=== PATIENT | male | born 1960 | race Caucasian/White ===

== ENCOUNTER 2016-11-18 17:41 | Inpatient (IN) | payer OTHER ==
[~2016-11-18] VITALS: Ht 175.3 cm; Wt 137.6 kg
[~2016-11-18 17:41] MED LIST: AMARYL2 MG PO; GLUCOPHAGE1000 MG PO; PRINIVIL20 MG PO
[2016-11-18 18:53] LABS: HEMATOCRIT 45.3 % (38.0-50.0); MCH 29.6 PG (29.0-34.0); MCHC 34.2 G/DL (30.0-36.0); MCV 86.6 FL (86-99); MEAN PLAT.VOLUME 11.3 uM^3 (9.0-12.4); PLATELET COUNT 216 K/uL (156-360); RBC DIS.WIDTH-CV 11.9 % (11.8-14.6); RBC DIS.WIDTH-SD 37.5 % (39-53); RED BLOOD COUNT 5.23 M/uL (4.00-5.50); WHITE BLOOD COUNT 11.9 K/uL (4.1-10.2)
[2016-11-18 19:17] LABS: CHLORIDE 103 mEq/L (99-109); POTASSIUM 4.9 mEq/L (3.7-5.4); SODIUM 134 mEq/L (136-147)
[2016-11-18 19:19] LABS: GLUCOSE 290 mg/dL (70-99)
[2016-11-18 19:20] LABS: ANION GAP 10 MEQ/L (2-14)
[2016-11-18 19:23] LABS: GFR ESTIMATE (CALCULATED) 55 mL/min/
[2016-11-18 19:24] LABS: UREA NITROGEN (BUN) 24 mg/dL (9-23)
[2016-11-18 19:27] LABS: TROP-I INTERPRETATION NEGATIVE; TROPONIN-I < 0.01 ng/mL (0.0-0.30)
[2016-11-18 21:37] LABS: TROP-I INTERPRETATION NEGATIVE; TROPONIN-I < 0.01 ng/mL (0.0-0.30)
[2016-11-18] MEDS ORDERED: TERBINAFINE HC250 MG PO (22:31)
[2016-11-18] MEDS ORDERED: JANUMET XR 50-1 EACH PO (22:31)
[2016-11-18] MEDS ORDERED: ERGOCALCIF50000 UNIT PO (22:32)
[2016-11-19 02:54] VITALS: BP 122/72
[2016-11-19 03:49] VITALS: BP 120/79
[2016-11-19 06:21] LABS: POINT-OF-CARE METER ID UU13113831
[2016-11-19 06:27] LABS: BASOPHIL COUNT 0.1 K/uL (0-0.1); EOSINOPHIL (%) 0.6 % (0-5); EOSINOPHIL COUNT 0.1 K/uL (0-0.3); HEMATOCRIT 42.2 % (38.0-50.0); IMMATURE GRANULOCYTE (%) 0.6 % (0.0-0.7); IMMATURE GRANULOCYTE COUNT 0.1 K/uL; INSTRUMENT ABS NEUTROPHIL CT 8.5 K/uL; LYMPHOCYTE COUNT 1.4 K/uL (1.0-2.8); MCH 29.3 PG (29.0-34.0); MCHC 33.6 G/DL (30.0-36.0); MEAN PLAT.VOLUME 10.8 uM^3 (9.0-12.4); MONOCYTE (%) 6.8 % (3-12); MONOCYTE COUNT 0.7 K/uL (0-0.8); NEUTROPHIL (%) 78.7 % (45-76); NEUTROPHIL COUNT 8.5 K/uL (1.8-6.4); PLATELET COUNT 177 K/uL (156-360); RBC DIS.WIDTH-CV 12.3 % (11.8-14.6); RBC DIS.WIDTH-SD 38.7 % (39-53); RED BLOOD COUNT 4.85 M/uL (4.00-5.50); WHITE BLOOD COUNT 10.8 K/uL (4.1-10.2)
[2016-11-19 06:50] LABS: ALKALINE PHOSPHATASE 53 IU/L (3-129); ANION GAP 6 MEQ/L (2-14); CHLORIDE 104 MEQ/L (99-109); GFR ESTIMATE (CALCULATED) > 59 mL/min/; GLUCOSE 246 mg/dL (70-99); POTASSIUM 4.5 MEQ/L (3.7-5.4); SAMPLE HEMOLYSIS CHECK 0; SAMPLE ICTERIC CHECK 0; SAMPLE LIPEMIA CHECK 0; SODIUM 136 MEQ/L (136-147); TOTAL BILIRUBIN 1.1 MG/DL (0.0-1.0); UREA NITROGEN (BUN) 22 mg/dL (9-23)
[2016-11-19 06:53] LABS: TROP-I INTERPRETATION NEGATIVE; TROPONIN-I < 0.01 ng/mL (0.0-0.30)
[2016-11-19 07:56] VITALS: BP 137/77
[2016-11-19 12:17] LABS: POINT-OF-CARE METER ID UU13113700
[2016-11-19 16:35] LABS: POINT-OF-CARE METER ID UU13113700
[2016-11-19 20:00] VITALS: BP 141/81
[2016-11-19 20:57] LABS: POINT-OF-CARE METER ID UU13113700
[2016-11-20 00:07] VITALS: BP 109/65
[2016-11-20 04:10] VITALS: BP 126/59
[2016-11-20 07:52] VITALS: BP 135/78
[2016-11-20 08:01] LABS: POINT-OF-CARE METER ID UU14162513
[2016-11-20 15:09] LABS: HEMATOCRIT 43.7 % (38.0-50.0); MCV 87.4 FL (86-99)
[2016-11-20 16:20] LABS: POINT-OF-CARE USER ID STWLMB34
[2016-11-20 16:30] VITALS: BP 127/70
[2016-11-20 19:40] VITALS: BP 121/76
[2016-11-20 23:35] VITALS: BP 125/65
[2016-11-21 03:25] VITALS: BP 117/73
[2016-11-21 04:05] LABS: HEMATOCRIT 42.8 % (38.0-50.0); MCH 29.4 PG (29.0-34.0); MCHC 33.4 G/DL (30.0-36.0); MCV 88.1 FL (86-99); MEAN PLAT.VOLUME 10.7 uM^3 (9.0-12.4); PLATELET COUNT 164 K/uL (156-360); RBC DIS.WIDTH-CV 12.1 % (11.8-14.6); RBC DIS.WIDTH-SD 38.7 % (39-53); RED BLOOD COUNT 4.86 M/uL (4.00-5.50); WHITE BLOOD COUNT 12.3 K/uL (4.1-10.2)
[2016-11-21 04:06] LABS: HEMATOCRIT 42.5 % (38.0-50.0)
[2016-11-21 04:14] LABS: CHLORIDE 103 mEq/L (99-109); POTASSIUM 3.8 mEq/L (3.7-5.4); SODIUM 136 mEq/L (136-147)
[2016-11-21 04:16] LABS: GLUCOSE 213 mg/dL (70-99)
[2016-11-21 04:17] LABS: ANION GAP 8 MEQ/L (2-14)
[2016-11-21 04:20] LABS: GFR ESTIMATE (CALCULATED) > 59 mL/min/; UREA NITROGEN (BUN) 18 mg/dL (9-23)
[2016-11-21 08:13] VITALS: BP 134/75
[2016-11-21 11:05] VITALS: BP 136/77
[2016-11-21 15:40] VITALS: BP 141/79
[2016-11-21 16:47] LABS: POINT-OF-CARE METER ID UU14162508
[2016-11-21 19:30] VITALS: BP 116/71
[2016-11-21 21:43] LABS: POINT-OF-CARE METER ID UU14162508
[2016-11-21 23:27] VITALS: BP 118/69
[2016-11-22 03:30] VITALS: BP 137/75
[2016-11-22 07:18] LABS: HEMATOCRIT 39.5 % (38.0-50.0); MCH 29.4 PG (29.0-34.0); MCHC 33.7 G/DL (30.0-36.0); MCV 87.2 FL (86-99); MEAN PLAT.VOLUME 11.5 uM^3 (9.0-12.4); PLATELET COUNT 163 K/uL (156-360); RBC DIS.WIDTH-CV 11.9 % (11.8-14.6); RBC DIS.WIDTH-SD 38.4 % (39-53); RED BLOOD COUNT 4.53 M/uL (4.00-5.50); WHITE BLOOD COUNT 8.3 K/uL (4.1-10.2)
[2016-11-22 07:22] LABS: ANION GAP 8 MEQ/L (2-14); CHLORIDE 103 MEQ/L (99-109); GFR ESTIMATE (CALCULATED) > 59 mL/min/; GLUCOSE 203 mg/dL (70-99); POTASSIUM 3.8 MEQ/L (3.7-5.4); SAMPLE HEMOLYSIS CHECK 0; SAMPLE ICTERIC CHECK 0; SAMPLE LIPEMIA CHECK 0; SODIUM 138 MEQ/L (136-147); UREA NITROGEN (BUN) 11 mg/dL (9-23)
[2016-11-22 08:00] VITALS: BP 114/62
[2016-11-22 11:34] LABS: POINT-OF-CARE METER ID UU14162508
[2016-11-22 12:00] VITALS: BP 126/60
[2016-11-22 16:00] VITALS: BP 132/81
[2016-11-22 16:40] LABS: POINT-OF-CARE METER ID UU14162508
[2016-11-22 19:40] VITALS: BP 123/75
[2016-11-22 21:26] LABS: POINT-OF-CARE METER ID UU14162508
[2016-11-22 23:36] VITALS: BP 108/62
[2016-11-23 03:56] VITALS: BP 120/72
[2016-11-23 06:50] LABS: BASOPHIL COUNT 0.1 K/uL (0-0.1); EOSINOPHIL (%) 1.4 % (0-5); EOSINOPHIL COUNT 0.1 K/uL (0-0.3); HEMATOCRIT 42.8 % (38.0-50.0); IMMATURE GRANULOCYTE (%) 0.9 % (0.0-0.7); IMMATURE GRANULOCYTE COUNT 0.1 K/uL; INSTRUMENT ABS NEUTROPHIL CT 6.1 K/uL; LYMPHOCYTE COUNT 1.2 K/uL (1.0-2.8); MCH 29.3 PG (29.0-34.0); MCHC 33.6 G/DL (30.0-36.0); MCV 87.2 FL (86-99); MEAN PLAT.VOLUME 10.7 uM^3 (9.0-12.4); MONOCYTE (%) 6.5 % (3-12); MONOCYTE COUNT 0.5 K/uL (0-0.8); NEUTROPHIL (%) 75.4 % (45-76); NEUTROPHIL COUNT 6.1 K/uL (1.8-6.4); PLATELET COUNT 203 K/uL (156-360); RBC DIS.WIDTH-CV 11.9 % (11.8-14.6); RBC DIS.WIDTH-SD 38.5 % (39-53); RED BLOOD COUNT 4.91 M/uL (4.00-5.50); WHITE BLOOD COUNT 8.1 K/uL (4.1-10.2)
[2016-11-23 06:54] LABS: POINT-OF-CARE METER ID UU14162508
[2016-11-23 07:12] LABS: ANION GAP 7 MEQ/L (2-14); CHLORIDE 102 MEQ/L (99-109); GFR ESTIMATE (CALCULATED) > 59 mL/min/; GLUCOSE 196 mg/dL (70-99); SAMPLE HEMOLYSIS CHECK 0; SAMPLE ICTERIC CHECK 0; SAMPLE LIPEMIA CHECK 0; SODIUM 137 MEQ/L (136-147); UREA NITROGEN (BUN) 10 mg/dL (9-23)
[2016-11-23 07:51] VITALS: BP 121/62
[2016-11-23] MEDS ORDERED: XIFAXAN550 MG PO (12:45)
== END 2016-11-23 13:30 | disposition home or self-care (01) | DRG 392 ==
LOC: EME → EDBD 17:41 → EME 17:41 → 5WEST 11-19 01:23 → EDOF 11-19 01:23 → 5WEST 11-19 02:20 → 2EAST 11-19 14:51 → 5WEST 11-19 14:51 → 2EAST 11-20 15:46
PROVIDERS: Emergency Medicine; Hospitalist; Internal Medicine; Pediatrics; Physician Assistant; Physician Assistant Medical
DX: K52.9 Noninfective gastroenteritis and colitis, unspecified (principal); K62.5 Hemorrhage of anus and rectum; R07.89 Other chest pain; N17.9 Acute kidney failure, unspecified; E11.65 Type 2 diabetes mellitus with hyperglycemia; I71.2 Thoracic aortic aneurysm, without rupture; I95.89 Other hypotension; K64.9 Unspecified hemorrhoids; I10 Essential (primary) hypertension; K21.9 Gastro-esophageal reflux disease without esophagitis; K59.09 Other constipation; E66.01 Morbid (severe) obesity due to excess calories; Z68.41 Body mass index [BMI] 40.0-44.9, adult; E78.5 Hyperlipidemia, unspecified; I83.90 Asymptomatic varicose veins of unspecified lower extremity; Z98.890 Other specified postprocedural states; Z79.84 Long term (current) use of oral hypoglycemic drugs; Z87.891 Personal history of nicotine dependence
CPT/HCPCS: 36600; 71020; 71275; 74177; 78452; 80048; 80048 91; 80053; 80069; 82140; 82565; 82803; 82948; 84484; 84520; 85014; 85018; 85025; 85025 91; 85027; 86850; 86900; 86901; 93005; 93017; 94799; 99281; 99285; A9500; C9113; J1644; J1815; J2270; J2405; J2785; J3010; J7030

== ENCOUNTER 2017-03-08 14:01 | Observation (INO) | payer OTHER ==
[~2017-03-08] VITALS: Ht 175.3 cm; Wt 138.7 kg
[~2017-03-08 14:01] MED LIST changes: +ERGOCALCIF50000 UNIT PO; +JANUMET XR 50-1 EACH PO; +TERBINAFINE HC250 MG PO; +XIFAXAN550 MG PO
[2017-03-08 15:14] LABS: HEMATOCRIT 43.6 % (38.0-50.0); MCH 29.2 PG (29.0-34.0); MCHC 34.4 G/DL (30.0-36.0); MEAN PLAT.VOLUME 11.2 uM^3 (9.0-12.4); PLATELET COUNT 202 K/uL (156-360); RBC DIS.WIDTH-SD 36.9 % (39-53); RED BLOOD COUNT 5.13 M/uL (4.00-5.50); WHITE BLOOD COUNT 7.8 K/uL (4.1-10.2)
[2017-03-08 15:23] LABS: CHLORIDE 97 mEq/L (99-109); POTASSIUM 3.8 mEq/L (3.7-5.4); SODIUM 131 mEq/L (136-147)
[2017-03-08 15:25] LABS: GLUCOSE 377 mg/dL (70-99)
[2017-03-08 15:26] LABS: ANION GAP 12 MEQ/L (2-14)
[2017-03-08 15:29] LABS: GFR ESTIMATE (CALCULATED) > 59 mL/min/
[2017-03-08 15:30] LABS: UREA NITROGEN (BUN) 26 mg/dL (9-23)
[2017-03-08 15:36] LABS: TROP-I INTERPRETATION NEGATIVE; TROPONIN-I < 0.01 ng/mL (0.0-0.30)
[2017-03-08] MEDS ORDERED: ZESTORETIC 20-1 EAC1 PO (16:55)
[2017-03-08] MEDS ORDERED: NEXIUM20 MG PO (16:56)
[2017-03-08] MEDS ORDERED: CYANOCOBALAM1000 MCG PO (16:56)
[2017-03-08 17:42] VITALS: BP 135/82
[2017-03-08 18:00] LABS: SAMPLE HEMOLYSIS CHECK 0; SAMPLE ICTERIC CHECK 0; SAMPLE LIPEMIA CHECK 0
[2017-03-08 18:06] LABS: HDL CHOLESTEROL 44 MG/DL (Desirable>=40); LDL CHOLESTEROL 77 mg/dL (Desirable<100); NON-HDL CHOLESTEROL 132 mg/dL (Desirable<160); TOTAL CHOLESTEROL 176 mg/dL (Desirable<200); TRIGLYCERIDES 276 MG/DL (Normal: <150)
[2017-03-08 18:28] LABS: TROP-I INTERPRETATION NEGATIVE; TROPONIN-I < 0.01 ng/mL (0.0-0.30)
[2017-03-08 20:10] VITALS: BP 127/73
[2017-03-08 21:35] LABS: POINT-OF-CARE METER ID UU14162513
[2017-03-08 23:28] VITALS: BP 110/70
[2017-03-09 01:19] LABS: TROP-I INTERPRETATION NEGATIVE; TROPONIN-I < 0.01 ng/mL (0.0-0.30)
[2017-03-09 03:00] VITALS: BP 152/95
[2017-03-09 05:30] LABS: HEMATOCRIT 42.4 % (38.0-50.0); MCH 30.6 PG (29.0-34.0); MCHC 35.1 G/DL (30.0-36.0); MCV 87.1 FL (86-99); MEAN PLAT.VOLUME 11.3 uM^3 (9.0-12.4); PLATELET COUNT 173 K/uL (156-360); RBC DIS.WIDTH-CV 12.3 % (11.8-14.6); RBC DIS.WIDTH-SD 38.8 % (39-53); RED BLOOD COUNT 4.87 M/uL (4.00-5.50); WHITE BLOOD COUNT 6.8 K/uL (4.1-10.2)
[2017-03-09 06:14] LABS: ANION GAP 7 MEQ/L (2-14); CHLORIDE 101 MEQ/L (99-109); GFR ESTIMATE (CALCULATED) > 59 mL/min/; GLUCOSE 234 mg/dL (70-99); POTASSIUM 4.2 MEQ/L (3.7-5.4); SAMPLE HEMOLYSIS CHECK 0; SAMPLE ICTERIC CHECK 0; SAMPLE LIPEMIA CHECK 0; SODIUM 136 MEQ/L (136-147); UREA NITROGEN (BUN) 23 mg/dL (9-23)
[2017-03-09 08:01] LABS: POINT-OF-CARE METER ID UU13113700
[2017-03-09 08:50] VITALS: BP 142/88
[2017-03-09 11:44] VITALS: BP 124/84
[2017-03-09 12:47] LABS: POINT-OF-CARE METER ID UU13113700
== END 2017-03-09 14:32 | disposition home or self-care (01) ==
LOC: EME 14:01 → EDOF 16:48 → 5WEST 16:48
PROVIDERS: Hospitalist; Internal Medicine
DX: R07.89 Other chest pain (principal); E11.9 Type 2 diabetes mellitus without complications; E78.5 Hyperlipidemia, unspecified; I10 Essential (primary) hypertension; J45.909 Unspecified asthma, uncomplicated; F32.9 Major depressive disorder, single episode, unspecified; K21.9 Gastro-esophageal reflux disease without esophagitis; Z88.0 Allergy status to penicillin; Z87.891 Personal history of nicotine dependence; E66.9 Obesity, unspecified; E86.0 Dehydration; K22.70 Barrett's esophagus without dysplasia; I73.9 Peripheral vascular disease, unspecified
CPT/HCPCS: 71020; 80048; 80061; 82948; 84484; 85027; 85610; 93005; 99281; 99284; G0378; J1644; J1815; J2270; J7030